=== PATIENT | male | born 1995 | race American Indian/Alaskan Native ===

== ENCOUNTER 2016-09-26 15:53 | Emergency (ER) | payer SELFPAY ==
[2016-09-26 16:15] VITALS: BP 109/63
--- NOTE | 2016-09-26 20:05 | Emergency Department Report ---
ED Eye Problem HPI - General Chief complaint: Eye Problems Stated complaint: BLURRED VISION Time Seen by Provider: 09/26/16 19:55 Source: patient Mode of arrival: Ambulatory Limitations: No Limitations - History of Present Illness Initial comments: Emergency room complaints of blurred vision this morning when he was driving to work. Patient while he was driving his car and noticed blurred the distant site which lasted about a couple of minutes. No history of migraine headache. Denies any eye pain or discharge. he had eye examined 2 years ago. denies any eye injury or trauma. chief complaint: vision change -: Gradual, hour(s) (9) Onset Description: gradual Location: both eyes Place: street/outdoors, other (while driving) Eye Symptoms: blurry vision Severity: moderate Severity scale (0 -10): 2 Consistency: constant Associated Symptoms: none Treatments Prior to Arrival: none - Related Data Patient Tetanus UTD: Yes Previous Rx's Medication Instructions Recorded Last Taken Type Omeprazole [PriLOSEC] 20 mg PO QDAY #14 capsule. 01/28/16 Unknown Rx traMADol [Ultram 50 MG tab] 50 mg PO Q6HR PRN #10 tablet 01/28/16 Unknown Rx Allergies Allergy/AdvReac Type Severity Reaction Status Date / Time No Known Allergies Allergy Verified 01/28/16 22:01 ED Review of Systems ROS: Stated complaint: BLURRED VISION Other details as noted in HPI Comment: All other systems reviewed and negative Constitutional: denies: chills, fever Eyes: other (blurred vision). denies: eye pain, eye discharge, vision change ENT: denies: ear pain, throat pain Respiratory: denies: cough, shortness of breath, wheezing Cardiovascular: denies: chest pain, palpitations Endocrine: no symptoms reported Gastrointestinal: denies: abdominal pain, nausea, diarrhea Genitourinary: denies: urgency, dysuria Musculoskeletal: denies: back pain, joint swelling, arthralgia Skin: denies: rash, lesions Neurological: denies: headache, weakness, paresthesias Psychiatric: denies: anxiety, depression Hematological/Lymphatic: denies: easy bleeding, easy bruising ED Past Medical Hx - Past Medical History Previous Medical History?: No - Surgical History Past Surgical History?: No - Social History Smoking Status: Never Smoker Substance Use Type: Alcohol - Medications Home Medications: Home Medications Medication Instructions Recorded Confirmed Last Taken Type Omeprazole [PriLOSEC] 20 mg PO QDAY #14 capsule.dr 01/28/16 Unknown Rx traMADol [Ultram 50 MG tab] 50 mg PO Q6HR PRN #10 tablet 01/28/16 Unknown Rx ED Physical Exam - General Limitations: No Limitations General appearance: alert, in no apparent distress - Head Head exam: Present: atraumatic, normocephalic - Eye Eye exam: Present: normal appearance, PERRL, EOMI Pupils: Present: normal accommodation - ENT ENT exam: Present: mucous membranes moist - Neck Neck exam: Present: normal inspection - Respiratory Respiratory exam: Present: normal lung sounds bilaterally. Absent: respiratory distress - Cardiovascular Cardiovascular Exam: Present: regular rate, normal rhythm. Absent: systolic murmur, diastolic murmur, rubs, gallop - GI/Abdominal GI/Abdominal exam: Present: soft, normal bowel sounds - Rectal Rectal exam: Present: deferred - Extremities Exam Extremities exam: Present: normal inspection - Back Exam Back exam: Present: normal inspection - Neurological Exam Neurological exam: Present: alert, oriented X3 - Psychiatric Psychiatric exam: Present: normal affect, normal mood - Skin Skin exam: Present: warm, dry, intact, normal color. Absent: rash ED Course Vital Signs 09/26/16 16:11 Temperature 98.3 F Pulse Rate 76 Respiratory 20 Rate Blood Pressure 109/63 O2 Sat by Pulse 100 Oximetry - Reevaluation(s) Reevaluation #1: Patient has normal fundoscopy exam on both eyes. visual acuity is normal on both eyes. 09/26/16 20:06 Critical care attestation.: If time is entered above; I have spent that time in minutes in the direct care of this critically ill patient, excluding procedure time. ED Disposition Clinical Impression: Normal eye and vision exam Disposition: DISCHARGED TO HOME OR SELFCARE Is pt being admited?: No Does the pt Need Aspirin: No Condition: Good Instructions: Normal Exam (ED) Referrals: VIRA NELSON MD [Staff Physician] - 3-5 Days Forms: Work/School Release Form(ED)
== END 2016-09-26 20:10 | disposition home or self-care (01) ==
LOC: ED 15:53
DX: Z01.00 Encounter for examination of eyes and vision without abnormal findings (principal)
CPT/HCPCS: 99282